=== PATIENT | female | born 1970 | race Two or more races ===

== ENCOUNTER 2018-04-04 05:25 | Emergency (ER) | payer MEDICAID, OTHER ==
[~2018-04-04] VITALS: Ht 167.6 cm; Wt 74.7 kg
[2018-04-04] MEDS ORDERED: ONDANSETRON ODT 4 MG ONE (05:49)
[2018-04-04] MEDS ORDERED: HYDROcodone/APAP 5/325 TABLET ONE (05:50)
--- NOTE | 2018-04-04 05:53 | NUR ---
PT. TO ED WITH C/O PELVIC PAIN X 1 MONTH; HAS BEEN SEEN AT [facility] FOR SAME. CONTRERAS BENITEZ WAS IN TO EVAL PT. AND DISCUSS POC. PT. MEDICATED PER APR. CONTINUOUS PULSE OX IN PLACE. CALL LIGHT IN REACH. FAMILY AT FOR SUPPORT. ALL SAFETY MEASURES OBSERVED.
[2018-04-04] MEDS ORDERED: HYDROcodone/APAP 5/325 TABLET PO ONE (06:00)
[2018-04-04] MEDS ORDERED: ONDANSETRON ODT 4 MG PO ONE (06:00)
[2018-04-04 06:08] LABS: BASOPHILS # (AUTO) 0.05 x10^3/uL (0-0.1); BASOPHILS % (AUTO) 1 % (0-1); EOSINOPHILS # (AUTO) 0.12 x10^3/uL (0-0.4); EOSINOPHILS % (AUTO) 1 % (1-7); LYMPHOCYTES # (AUTO) 3.89 x10^3/uL (1-3.4); LYMPHOCYTES % (AUTO) 43 % (22-44); MD NO; MEAN CORPUSCULAR HEMOGLOBIN 30.6 pg (27.0-34.8); MEAN CORPUSCULAR HGB CONC 34.2 g/dL (32.4-35.8); MEAN CORPUSCULAR VOLUME 89.6 fL (80-100); MEAN PLATELET VOLUME 8.2 fL (7.4-10.4); MONOCYTES # (AUTO) 0.44 x10^3/uL (0.2-0.8); MONOCYTES % (AUTO) 5 % (2-9); NEUTROPHILS # (AUTO) 4.57 x10^3/uL (1.8-6.8); NEUTROPHILS % (AUTO) 50 % (42-75); PLATELET COUNT 316 x10^3/uL (130-400); RED CELL DISTRIBUTION WIDTH 13.3 % (9.6-15.2)
[2018-04-04 06:11] LABS: CULTURE INDICATED? NO; MICROSCOPIC NOT IND
[2018-04-04 06:24] LABS: ALANINE AMINOTRANSFERASE 30 U/L (12-78); ALBUMIN 3.4 g/dL (3.4-5.0); ANION GAP 7 mmol/L (5-15); CALCIUM 8.6 mg/dL (8.5-10.1); CHLORIDE 111 mmol/L (98-107); CREATININE 0.74 mg/dL (0.55-1.02)
[2018-04-04 06:29] LABS: ALKALINE PHOSPHATASE 111 U/L (45-117); BILIRUBIN,TOTAL 0.4 mg/dL (0.2-1.0); TOTAL PROTEIN 7.1 g/dL (6.4-8.2)
--- NOTE | 2018-04-04 06:38 | NUR ---
PT. OUT OF ROOM FOR IMAGING.
--- NOTE | 2018-04-04 06:57 | NUR ---
PT. BACK IN ROOM; VS UPDATED. CREDIT REVIEW ANALYST PLACED. REPORT TO DIPTI AGUILAR. PT. REPORTS PAIN IS MUCH BETTER AT 5/10 NOW DOWN FROM 9/10 PRIOR TO PAIN MEDS. CALL LIGHT IN REACH. ALL SAFETY MEASURES OBSERVED.
[2018-04-04 07:51] VITALS: BP 109/61
--- NOTE | 2018-04-04 07:52 | NUR ---
Patient/Caregiver given discharge instructions and they have confirmed that they understand the instructions. Patient ambulatory with steady gait.
== END 2018-04-04 07:54 | disposition home or self-care (01) ==
LOC: ED 07:45
DX: G89.29 Other chronic pain (principal); R10.2 Pelvic and perineal pain; R11.2 Nausea with vomiting, unspecified; E78.5 Hyperlipidemia, unspecified
CPT/HCPCS: 36415; 76830; 80053; 81003; 83690; 84703; 85025; 93005; 99284; Q0162